=== PATIENT | female | born 1995 | race Caucasian/White ===

== ENCOUNTER 2016-10-27 18:45 | Inpatient (IN) | payer OTHER ==
[2016-10-27 19:25] LABS: ABSOLUTE NEUTROPHIL COUNT 3.9 K/mm3 (1.8-7.7); BASO % 0.2 % (0.2-1.0); EOS % 0.7 % (0.9-2.9); IMM NEUT% 0.3 % (0-1); LYMPH # 1.4 (1.0-4.8); LYMPH % 23.6 % (15-45); MEAN CELL VOLUME 74.3 fl (81.0-99.0); MEAN CORPUSCULAR HEMOGLOBIN 20.6 pg (27.0-31.0); MEAN CORPUSCULAR HGB CONC 27.7 g/dl (33.0-37.0); MONO # 0.7 (0.0-0.8); MONO % 10.7 % (4-12); NEUT % 64.5 % (43-75); PLATELET COUNT 339 K/mm3 (130-400); RED CELL DISTRIBUTION WIDTH 16.2 % (11.5-14.5)
[2016-10-27 19:34] LABS: HEMATOCRIT 15.9 % (37.0-47.0); HEMOGLOBIN 4.4 gm/l (12.0-16.0)
[2016-10-27 20:12] LABS: INR 1.06; PROTHROMBIN TIME 11.1 SECONDS (9.3-11.4)
[2016-10-27] MEDS ORDERED: BLISTEX LIPSTICK 1 EACH TP PRN (20:13)
[2016-10-27] MEDS ORDERED: ACETAMINOPHEN 325 MG TABLET PO PRN (20:13)
[2016-10-27] MEDS ORDERED: BISACODYL 10 MG SUP PR PRN (20:13)
[2016-10-27] MEDS ORDERED: SODIUM CHLORIDE 0.9% 100 ML IV PRN (20:13)
[2016-10-27] MEDS ORDERED: MENTHOL/CETYLPYRD 1 EACH LOZENGE PO PRN (20:13)
[2016-10-27] MEDS ORDERED: BISACODYL 5 MG TABLET.EC PO PRN (20:13)
[2016-10-27] MEDS ORDERED: SODIUM CHLORIDE 0.9% 500 ML IV PRN (20:13)
[2016-10-27] MEDS ORDERED: MAGNESIUM HYDROXIDE 30 ML UDCUP PO PRN (20:13)
[2016-10-27 20:32] LABS: CALCIUM 9.1 mg/dL (8.6-10.3)
[2016-10-27] MEDS ORDERED: BLOOD Y PLUMSET W/CASSETTE ONE (20:33)
[2016-10-27] MEDS: DOCUSATE SODIUM 100 MG CAPSULE PO SCH (21:28)
[2016-10-27 21:32] LABS: ANISOCYTOSIS 3+; HYPOCHROMIA 1+; PLATELET ESTIMATE NORMAL (NORMAL)
[2016-10-27 21:54] VITALS: BMI 27.0
[2016-10-28 05:28] LABS: ABSOLUTE NEUTROPHIL COUNT 3.9 K/mm3 (1.8-7.7); BASO # 0.1 K/mm3 (0.0-0.2); BASO % 0.7 % (0.2-1.0); EOS # 0.1 (0.0-0.5); EOS % 0.8 % (0.9-2.9); HEMATOCRIT 26.7 % (37.0-47.0); HEMOGLOBIN 8.3 gm/l (12.0-16.0); IMM NEUT% 0.4 % (0-1); LYMPH # 2.3 (1.0-4.8); LYMPH % 31.6 % (15-45); MEAN CELL VOLUME 79.5 fl (81.0-99.0); MEAN CORPUSCULAR HEMOGLOBIN 24.7 pg (27.0-31.0); MEAN CORPUSCULAR HGB CONC 31.1 g/dl (33.0-37.0); MEAN PLATELET VOLUME 10.3 fl (7.4-10.4); MONO % 13.3 % (4-12); NEUT % 53.2 % (43-75); PLATELET COUNT 297 K/mm3 (130-400)
[2016-10-28 05:30] LABS: CALCIUM 8.8 mg/dL (8.6-10.3)
--- NOTE | 2016-10-28 06:35 | HP ---
LOURDES AGUIRRE [id number] DATE OF ADMISSION: October 27, 2016 CHIEF COMPLAINT: Low blood count. HISTORY OF PRESENT ILLNESS: The patient is a 21-year-old developmentally delayed female referred to the [facility] Emergency Department by urgent care in [place] after she presented there with complaints of heavy menses. She has been having heavy menstrual flow for the past six weeks with cramping and bloating. She has been appearing more pale and weaker and father has had trouble getting her an appointment with a new physician and decided to bring her in to urgent care for further evaluation. In urgent care she was found to have critically low hemoglobin and was referred to the hospital for further evaluation and transfusion. Patient is a difficult historian due to her developmental delay but the father reports that she is not sexually active. She began having her periods around 11 years of age. Sometimes they are heavy. Generally they are regular but this cycle has been going on for six weeks at least and averaging about three to four pads per day, sometimes more. The bleeding has slowed down in the last 48 hours, but the patient has been getting weaker. REVIEW OF SYSTEMS: Is negative for any fever, chills, or recent upper respiratory symptoms. She denies cough, dyspnea, wheezing, chest pain, shortness of breath or palpitations. She denies any nausea, vomiting, abdominal pain, diarrhea or constipation. No arthralgias, no headaches, blackouts or seizures. No urinary complaints. Review of systems is otherwise negative. PAST MEDICAL HISTORY: Is negative for any chronic medical problems. She does not have a regular physician. PAST SURGICAL HISTORY: Negative. ALLERGIES: NO KNOWN DRUG ALLERGIES. CURRENT MEDICATIONS: She takes no medications. FAMILY HISTORY: Significant for a mother who of complications of alcoholic liver disease. SOCIAL HISTORY: She lives with her father, her 13-year-old brother and her grandmother. She graduated from high school special education. Stays at home. No history of alcohol, tobacco or illicit drug use. PHYSICAL EXAMINATION: VITAL SIGNS: Temperature is 99.4, pulse 128, blood pressure 135/78, respirations 24, oxygen saturation 100% on room air. Weight and body mass index have not yet been calculated. GENERAL: This is a slightly obese female who appears very pale but in no acute distress. HEENT: Exam shows moist, pale oral mucosa. NECK: Is supple without lymphadenopathy or thyromegaly. CHEST: Lungs are clear to auscultation bilaterally. CARDIOVASCULAR: Exam reveals a regular tachycardia without a murmur. ABDOMEN: Soft, nontender, nondistended with positive bowel sounds. PELVIC: Exam is deferred. RECTAL: Exam is deferred. EXTREMITIES: Show no peripheral edema. Pulses are 2+. SKIN: Warm, dry and intact. Capillary refill is about 3 seconds. LABORATORY STUDIES: CBC shows a white count of 6.1, hemoglobin of 4.4, hematocrit of 15.9, mean corpuscular volume of 74.3 and a platelet count of 339, 000. INR is 1.06. Chemistry profile shows sodium 139, potassium 3.7, BUN 8, creatinine 0.7, glucose 112, serum test is negative. ASSESSMENT: Patient has menorrhagia with acute blood loss anemia as well as iron deficiency anemia with developmental delay and generalized weakness as well as tachycardia. PLAN: 1. She is admitted to the intensive care unit for transfusion. Anticipate transfusing at least three units of packed red blood cells with a fourth unit on hold for reserve. 2. We will work on arranging outpatient gynecological followup. If she continues to have significant bleeding, then we will consult with gynecology in house. Hormonal therapy will be considered such as Provera versus high dose estrogen therapy. 3. Further treatment and recommendations will depend on her hospital course. 4. Venous thromboembolism risk is considered moderate and prophylaxis is prescribed in the form of mechanical measures.
[2016-10-28 08:26] VITALS: BP 124/82
[2016-10-28] MEDS ORDERED: ASCORBIC ACID 250 MG TABLET PO SCH (09:00)
[2016-10-28] MEDS ORDERED: FERROUS SULFATE (65 Fe) 325 MG TABLET PO SCH (09:00)
[2016-10-28] MEDS ORDERED: NORGESTIMATE ETHINYL ESTRADIOL PO SCH (12:00)
[2016-10-28] MEDS: DOCUSATE SODIUM 100 MG CAPSULE PO SCH (12:37)
--- NOTE | 2016-10-28 14:20 | US ---
Name: LOURDES RUIZUNOV Exam: Pelvic ultrasound Comparison: None Clinical history: Menorrhagia Findings: Transabdominal imaging of the pelvis was performed. Endovaginal imaging was not performed. The bladder is distended. Uterus is normal size at 6.2 x 4.7 x 2.2 cm. Endometrium is 10 mm thick. Correlate clinically. There is no intrauterine fluid collection or free fluid. Right ovary measures 3.7 x 3.4 x 1.8 cm with a volume of 11.2 cc. Left ovary measures 4.2 x 3.6 x 1.7 cm with a volume of 13.4 cc. There is no suspicious adnexal mass or fluid collection. Impression: Normal transabdominal images of the pelvis
== END 2016-10-28 14:00 | disposition home or self-care (01) | DRG 812 ==
LOC: ED 18:45 → ICU 19:46
PROVIDERS: ADMIT Family Medicine; ATTEND Family Medicine
PROC: 30233N1 Transfusion of Nonautologous Red Blood Cells into Peripheral Vein, Percutaneous Approach (ICD-10-PCS; principal; 2016-10-27)
DX: D64.9 Anemia, unspecified (principal)